=== PATIENT | male | born 1960 | race Two or more races ===

== ENCOUNTER 2022-04-17 08:07 | Inpatient (IN) | payer MEDICARE, MEDICAID ==
[~2022-04-17] VITALS: Ht 170.2 cm; Wt 94.0 kg
[~2022-04-17 08:07] MED LIST: ASPI1TAB20 PO; ATO40T PO; GABA300C10 PO; IBUP800T27 PO; INS7030I SC; LISI20TA28 PO; METF-372 PO; OMEP20TA PO
[2022-04-17] MEDS ORDERED: BUPIVACAINE HCL 0.25% P/F 10 ML VIAL ONE (08:17)
[2022-04-17] MEDS ORDERED: VANCOMYCIN HCL 1000 MG VL ONE (08:19)
[2022-04-17] MEDS ORDERED: KETOROLAC TROMETH 30 MG/ML 1ML VIAL ONE (08:26)
[2022-04-17] MEDS ORDERED: TRANEXAMIC ACID 20 ML ONE (08:40)
[2022-04-17] MEDS ORDERED: ROPIVACAINE 0.5% (5MG/ML) 20ML AMPULE IJ ONE (09:33)
[2022-04-17] MEDS ORDERED: fentaNYL CITRATE 100 MCG/2 ML VL ONE (09:40)
[2022-04-17] MEDS ORDERED: fentaNYL CITRATE 5 ML ONE (09:40)
[2022-04-17] MEDS ORDERED: MIDAZOLAM HCL 2MG/2ML 2ml VIAL (1mg/ml) ONE (09:40)
[2022-04-17] MEDS ORDERED: ROCURONIUM 10MG/ML 10ML VIAL IV ONE (09:40)
[2022-04-17] MEDS ORDERED: HYDROmorphone HCL 2 MG/ML VL/or syr IV PRN ×2 (11:45)
[2022-04-17] MEDS ORDERED: ONDANSETRON HCL 4 MG/2 ML VIAL IV PRN (11:45)
[2022-04-17] MEDS ORDERED: PROPOFOL 10 MG/ML 20 ML IV ONE (12:27)
[2022-04-17] MEDS ORDERED: ONDANSETRON HCL 4 MG/2 ML VIAL ONE (12:28)
[2022-04-17] MEDS ORDERED: LIDOCAINE 2% (LOCAL ANESTH.) PF 5ml SDV ONE (12:28)
[2022-04-17] MEDS: ACETAMINOPHEN 325 MG TAB PO SCH ×2 (12:30→18:51)
[2022-04-17] MEDS: D5W/LACTATED RINGERS 1,000 ML IV SCH (12:30)
[2022-04-17] MEDS ORDERED: oxyCODONE HCL 5MG TAB PO PRN (12:30)
[2022-04-17] MEDS ORDERED: DEXTROSE (50%) 50ML SYRG IV PRN (12:30)
[2022-04-17] MEDS ORDERED: HYDROmorphone HCL 2 MG/ML VL/or syr IV ONE ×2 (13:55→14:10)
[2022-04-17] MEDS: ceFAZolin 2 GM in D5W 5% 100 ML IV SCH ×2 (14:00→22:22)
[2022-04-17] MEDS: oxyCODONE HCL 5MG TAB PO PRN ×2 (14:34→21:25)
[2022-04-17] MEDS: ACCU-CHEK COMFORT CURVE STRIP VI SCH ×2 (17:00→22:20)
[2022-04-17] MEDS: InsuLIN REG 1unit/0.01ml Soln (100units/ml) SC SCH ×2 (17:57→21:54)
[2022-04-17] MEDS ORDERED: ACETAMINOPHEN 325 MG TAB PO SCH (18:00)
[2022-04-17] MEDS: KETOROLAC TROMETH 30 MG/ML 1ML VIAL IV SCH (18:50)
[2022-04-17 22:00] VITALS: BP 119/77
[2022-04-17] MEDS ORDERED: METFORMIN HYDROCHLORIDE 1000 MG PO SCH (22:00)
[2022-04-17] MEDS: PREGABALIN 25 MG CAP PO SCH (22:21)
[2022-04-17] MEDS: LISINOPRIL 20 MG TAB PO SCH (22:21)
[2022-04-17] MEDS: metFORMIN HYDROCHLORIDE 500 MG TAB PO SCH (22:22)
[2022-04-17] MEDS: ATORVASTATIN 20 MG TAB PO SCH (22:22)
[2022-04-18] MEDS: ACETAMINOPHEN 325 MG TAB PO SCH ×4 (00:30→18:30)
[2022-04-18] MEDS: D5W/LACTATED RINGERS 1,000 ML IV SCH ×3 (01:43→18:30)
[2022-04-18 05:00] VITALS: BP 107/50
[2022-04-18] MEDS: InsuLIN REG 1unit/0.01ml Soln (100units/ml) SC SCH ×3 (07:00→18:34)
[2022-04-18] MEDS: ACCU-CHEK COMFORT CURVE STRIP VI SCH ×4 (07:00→22:15)
[2022-04-18] MEDS: KETOROLAC TROMETH 30 MG/ML 1ML VIAL IV SCH ×5 (07:01→18:00)
[2022-04-18 09:00] VITALS: BP 124/71
[2022-04-18] MEDS ORDERED: PATIENTS OWN MEDICATION (Omeprazole (Gnp Omeprazole) 20 MG) PO SCH (10:00)
[2022-04-18] MEDS ORDERED: PANTOPRAZOLE 40 MG TAB PO SCH (10:00)
[2022-04-18] MEDS ORDERED: PATIENTS OWN MEDICATION (Atorvastatin Calcium (Lipitor) 40 MG) PO SCH (10:00)
[2022-04-18] MEDS: ASPirin 81 mg TAB PO SCH ×2 (11:11→21:48)
[2022-04-18] MEDS: metFORMIN HYDROCHLORIDE 500 MG TAB PO SCH ×2 (11:11→21:50)
[2022-04-18] MEDS: PREGABALIN 25 MG CAP PO SCH ×2 (11:11→21:50)
[2022-04-18] MEDS: LISINOPRIL 20 MG TAB PO SCH ×2 (11:12→22:00)
[2022-04-18 13:00] VITALS: BP 113/60
[2022-04-18 13:30] VITALS: BP 113/60
[2022-04-18 17:00] VITALS: BP 121/78
[2022-04-18] MEDS: ATORVASTATIN 20 MG TAB PO SCH (21:50)
[2022-04-18 22:00] VITALS: BP 105/63
[2022-04-19] MEDS: KETOROLAC TROMETH 30 MG/ML 1ML VIAL IV SCH ×2 (00:06→05:09)
[2022-04-19] MEDS: ACETAMINOPHEN 325 MG TAB PO SCH ×2 (00:07→06:10)
[2022-04-19] MEDS: InsuLIN REG 1unit/0.01ml Soln (100units/ml) SC SCH ×2 (00:14→06:11)
[2022-04-19] MEDS: D5W/LACTATED RINGERS 1,000 ML IV SCH (04:30)
[2022-04-19 05:00] VITALS: BP 98/61
[2022-04-19 06:10] VITALS: BP 119/79
[2022-04-19] MEDS: ACCU-CHEK COMFORT CURVE STRIP VI SCH (06:11)
[2022-04-19 08:00] VITALS: BP 111/68
[2022-04-19 09:13] VITALS: BP 111/68
== END 2022-04-19 10:30 | disposition home or self-care (01) | DRG 468 ==
LOC: SUR 08:07 → WEST WING 08:08
PROVIDERS: ADMIT Orthopaedic Surgery; ATTEND Orthopaedic Surgery
PROC: 0SRD069 Replacement of Left Knee Joint with Oxidized Zirconium on Polyethylene Synthetic Substitute, Cemented, Open Approach (ICD-10-PCS; 2022-04-17)
PROC: 0SPD0JZ Removal of Synthetic Substitute from Left Knee Joint, Open Approach (ICD-10-PCS; principal; 2022-04-17 09:40)
DX: T84.093A Other mechanical complication of internal left knee prosthesis, initial encounter (principal); Y79.2 Prosthetic and other implants, materials and accessory orthopedic devices associated with adverse incidents; M19.90 Unspecified osteoarthritis, unspecified site; Z96.652 Presence of left artificial knee joint; Z20.822 Contact with and (suspected) exposure to COVID-19; I10 Essential (primary) hypertension; K21.9 Gastro-esophageal reflux disease without esophagitis; E11.9 Type 2 diabetes mellitus without complications
CPT/HCPCS: 73562; 82962; 86850; 86900; 86901; 97110; 97116; 97163; 97530; G0378; J0690; J1815; J1885; J2001; J2250; J2405; J2704; J3490; J7060

== ENCOUNTER 2022-09-30 07:33 | Inpatient (IN) | payer OTHER, MEDICAID ==
[~2022-09-30] VITALS: Ht 170.2 cm; Wt 90.1 kg
[2022-09-30] VITALS (11 sets, daily range): BP systolic 101–127; BP diastolic 71–77; PULSE 82–109; RESP 12–22; TEMP 98.2–99.5; O2SAT 96–99
[~2022-09-30 07:33] MED LIST changes: +GABA-1250 PO; -GABA300C10 PO; +IBUP-1456 PO; -IBUP800T27 PO; -LISI20TA28 PO; +LISI20TA56 PO
[2022-09-30] MEDS ORDERED: DexAMETHasone SOD PHOS 10MG/1ML VIAL INJ IV ONE (07:45)
[2022-09-30] MEDS ORDERED: DexAMETHasone SOD PHOS 10MG/1ML VIAL INJ ONE (07:46)
[2022-09-30] MEDS ORDERED: diphenhdrAMINE HCL 12.5 MG/5 ML UD PO ONE (08:00)
[2022-09-30 08:13] LABS: Basophils # (auto) 0.1 10 ^3/uL (0-0.2); Basophils % (auto) 0.8 % (0.0-2.0); Eosinophils # (auto) 0.2 10 ^3/uL (0-0.8); Eosinophils % (auto) 2.3 % (0.0-7.0); Hematocrit 39.7 % (41.0-53.0); Hemoglobin 13.5 g/dL (13.5-17.5); Lymphocytes # (auto) 2.2 10 ^3/uL (0.4-5.4); Lymphocytes % (auto) 25.1 % (10.0-50.0); Mean Corpuscular Hemoglobin 30.5 pg (28.0-32.0); Mean Corpuscular Volume 89.7 fL (80.0-100.0); Monocytes # (auto) 0.9 10 ^3/uL (0-1.3); Monocytes % (auto) 10.1 % (0.0-12.0); Neutrophils # (auto) 5.3 10 ^3/uL (1.6-8.6); Neutrophils % (auto) 61.7 % (37.0-80.0); Red Blood Cells 4.43 10^6/uL (4.5-5.90); Red Cell Distribution Width 15.4 % (11.8-14.3); White Blood Cell 8.6 10^3/uL (4.4-10.8)
[2022-09-30 08:16] LABS: Albumin 3.6 g/dL (3.4-5.0); Calcium 8.5 mg/dL (8.5-10.1); Potassium 4.1 mmol/L (3.5-5.1)
[2022-09-30 08:20] LABS: BUN/Creatinine Ratio 18.2 (10.0-20.0); Bilirubin, Total 0.3 mg/dL (0.2-1.0); Total Protein 7.9 g/dL (6.4-8.2)
[2022-09-30] MEDS ORDERED: EPINEPHrine HCL 1 MG/1 ML AMP SC ONE (11:30)
[2022-09-30] MEDS ORDERED: ALBUTEROL SULF 2.5 MG/0.5ML(0.5%) NEB SOLN NEB PRN (12:30)
[2022-09-30] MEDS ORDERED: MORPHINE SULFATE INJ 2 MG/ml SYRG IV PRN (12:30)
[2022-09-30] MEDS ORDERED: ACETAMINOPHEN 325 MG TAB PO PRN (12:30)
[2022-09-30] MEDS ORDERED: diphenhdrAMINE HCL 50 MG/1 ML VL IV PRN (12:30)
[2022-09-30] MEDS ORDERED: PROCHLORPERAZINE EDISYLATE 5 MG/ML 2ML VIAL IV PRN (12:30)
[2022-09-30] MEDS ORDERED: NITROGLYCERIN 0.4 MG SL TAB SL PRN (12:30)
[2022-09-30] MEDS ORDERED: IPRATROPIUM BROM 0.5 MG/2.5ML INH SOL NEB PRN (12:30)
[2022-09-30] MEDS ORDERED: IBUPROFEN 800 MG TAB PO PRN (12:30)
[2022-09-30] MEDS ORDERED: DEXTROSE (50%) 50ML SYRG IV PRN (12:45)
[2022-09-30] MEDS ORDERED: hydrALAZINE HCL 20 MG/ML VL IV PRN (12:45)
[2022-09-30] MEDS: ALBUTEROL SULF 2.5 MG/0.5ML(0.5%) NEB SOLN NEB SCH ×3 (14:13→23:31)
[2022-09-30] MEDS: IPRATROPIUM BROM 0.5 MG/2.5ML INH SOL NEB SCH ×3 (14:13→23:31)
[2022-09-30] MEDS: ACCU-CHEK COMFORT CURVE STRIP VI SCH ×2 (17:02→22:18)
[2022-09-30] MEDS: InsuLIN REG 1unit/0.01ml Soln (100units/ml) SC SCH (17:07)
[2022-09-30] MEDS ORDERED: InsuLIN REG 1unit/0.01ml Soln (100units/ml) SC SCH (22:00)
[2022-09-30] MEDS ORDERED: GABAPENTIN 300 MG CAP PO SCH (22:00)
[2022-10-01] MEDS: methylPREDNISolone SOD SUCC 40 MG/ML VL IV SCH ×2 (00:14→09:30)
[2022-10-01 05:47] LABS: Basophils # (auto) 0.1 10 ^3/uL (0-0.2); Basophils % (auto) 0.4 % (0.0-2.0); Eosinophils # (auto) 0 10 ^3/uL (0-0.8); Eosinophils % (auto) 0.1 % (0.0-7.0); Hematocrit 37.4 % (41.0-53.0); Hemoglobin 12.5 g/dL (13.5-17.5); Lymphocytes # (auto) 1.3 10 ^3/uL (0.4-5.4); Lymphocytes % (auto) 9.8 % (10.0-50.0); Mean Corpuscular Hemoglobin 30.2 pg (28.0-32.0); Mean Corpuscular Hgb Conc. 33.4 g/dL (32.0-36.0); Mean Corpuscular Volume 90.6 fL (80.0-100.0); Monocytes # (auto) 0.9 10 ^3/uL (0-1.3); Monocytes % (auto) 6.8 % (0.0-12.0); Neutrophils # (auto) 10.7 10 ^3/uL (1.6-8.6); Neutrophils % (auto) 82.9 % (37.0-80.0); Red Blood Cells 4.12 10^6/uL (4.5-5.90); Red Cell Distribution Width 15.7 % (11.8-14.3); White Blood Cell 12.9 10^3/uL (4.4-10.8)
[2022-10-01 06:00] LABS: Albumin 3.5 g/dL (3.4-5.0); Calcium 8.7 mg/dL (8.5-10.1); Potassium 4.2 mmol/L (3.5-5.1)
[2022-10-01] MEDS: IPRATROPIUM BROM 0.5 MG/2.5ML INH SOL NEB SCH ×3 (06:00→14:00)
[2022-10-01] MEDS: ALBUTEROL SULF 2.5 MG/0.5ML(0.5%) NEB SOLN NEB SCH ×3 (06:00→14:00)
[2022-10-01 06:02] LABS: BUN/Creatinine Ratio 23.4 (10.0-20.0)
[2022-10-01 06:05] LABS: Bilirubin, Total 0.4 mg/dL (0.2-1.0); Total Protein 7.7 g/dL (6.4-8.2)
[2022-10-01] MEDS: ACCU-CHEK COMFORT CURVE STRIP VI SCH ×2 (06:50→11:42)
[2022-10-01] MEDS: InsuLIN REG 1unit/0.01ml Soln (100units/ml) SC SCH ×2 (06:50→11:50)
[2022-10-01 08:00] VITALS: PULSE 85; PULSE 90; RESP 14; RESP 20; O2SAT 97
[2022-10-01 08:13] VITALS: PULSE 93; RESP 14; O2SAT 97
[2022-10-01 09:08] VITALS: O2SAT 97
[2022-10-01] MEDS ORDERED: ASPirin-EC 81 mg tab PO SCH (10:00)
[2022-10-01] MEDS ORDERED: ATORVASTATIN 20 MG TAB PO SCH (10:00)
[2022-10-01] MEDS ORDERED: PANTOPRAZOLE 40 MG/10 ML VIAL INJ IV SCH (10:00)
[2022-10-01 12:00] VITALS: TEMP 98.2
[2022-10-01] MEDS ORDERED: FAMO20TA10 PO (13:12)
[2022-10-01] MEDS ORDERED: PRED20TA2 PO (13:12)
[2022-10-01] MEDS ORDERED: FAMOTIDINE INJECTION 40 MG in SODIUM CHL 0.9% 100 ML IV ONE (13:15)
[2022-10-01] MEDS ORDERED: DexAMETHasone SOD PHOS 10MG/1ML VIAL INJ IV ONE (13:15)
[2022-10-01] MEDS ORDERED: AMLO1TAB23 PO (13:16)
[2022-10-01 14:00] VITALS: BP 118/74; PULSE 85; RESP 20; O2SAT 95
== END 2022-10-01 14:45 | disposition home or self-care (01) | DRG 916 ==
LOC: ER 07:33 → TELE 12:31
PROVIDERS: ADMIT Hospitalist; ATTEND Hospitalist
PROC: 30233K1 Transfusion of Nonautologous Frozen Plasma into Peripheral Vein, Percutaneous Approach (ICD-10-PCS; principal; 2022-09-30)
DX: T78.3XXA Angioneurotic edema, initial encounter (principal); R13.10 Dysphagia, unspecified; I10 Essential (primary) hypertension; E66.01 Morbid (severe) obesity due to excess calories; E11.40 Type 2 diabetes mellitus with diabetic neuropathy, unspecified; E78.5 Hyperlipidemia, unspecified; T46.4X5A Adverse effect of angiotensin-converting-enzyme inhibitors, initial encounter; Z79.82 Long term (current) use of aspirin; Z79.899 Other long term (current) drug therapy; Z79.1 Long term (current) use of non-steroidal anti-inflammatories (NSAID); Z79.4 Long term (current) use of insulin; Z68.31 Body mass index [BMI] 31.0-31.9, adult; Y92.89 Other specified places as the place of occurrence of the external cause
CPT/HCPCS: 36415; 71045; 80053; 82962; 85025; 86850; 86900; 86901; 94640; 96372; 96374; C9113; G0378; J0171; J1100; J1815; J3490